=== PATIENT | male | born 1970 | race Caucasian/White ===

== ENCOUNTER 2024-03-27 11:18 | Inpatient (IN) | payer MEDICAID ==
[~2024-03-27] VITALS: Ht 170.2 cm; Wt 39.9 kg
[2024-03-27 11:42] LABS: DIFFERENTIAL COMMENT 1; HEMATOCRIT. 28.8 % (42.0-52.0); HEMOGLOBIN. 9.1 g/dL (14.0-18.0); MEAN CORPUSCULAR HEMOGLOBIN 25.1 pg (28.0-32.0); MEAN CORPUSCULAR HGB CONC 31.6 g/dL (31.0-37.0); MEAN CORPUSCULAR VOLUME 79.4 fL (80.0-94.0); MEAN PLATELET VOLUME 7.9 fl (7.4-10.4); PLATELET 338 x1000/uL (130-400); RED BLOOD CELL COUNT 3.63 mill/uL (4.7-6.1); RED CELL DISTRIBUTION WIDTH 19.7 % (11.6-14.6); WHITE BLOOD COUNT 14.1 x1000/uL (4.5-11.0)
[2024-03-27 11:48] LABS: CHLORIDE 108 mEq/L (98-107); POTASSIUM 3.9 mEq/L (3.5-5.1); SODIUM 139 mEq/L (136-145)
[2024-03-27 11:49] LABS: CALCIUM 8.3 mg/dL (8.7-10.4); CARBON DIOXIDE 21 mEq/L (21-32)
[2024-03-27 11:54] LABS: CREATININE 0.6 mg/dL (0.6-1.3); GLUCOSE 251 mg/dL (70-105); UREA NITROGEN BLOOD 21 mg/dL (9-23)
[2024-03-27 11:55] LABS: TROPONIN I HIGH SENSITIVITY 9 ng/L (3.0-53)
[2024-03-27 12:02] LABS: LACTIC ACID 5.3 mmol/L (0.4-2.0)
[2024-03-27 12:26] LABS: PROTHROMBIN TIME 11.4 sec (9.6-11.0)
[2024-03-27 12:27] LABS: ANISOCYTOSIS 2+; MICROCYTOSIS 1+; PLATELET ESTIMATE NORMAL
[2024-03-27] MEDS: VANCOMYCIN 1G PREMIX 200 ML IV ONE (13:09)
[2024-03-27] MEDS: PIPERACILLIN/TAZO 3.375G/50ML 50 ML IV ONE (13:09)
[2024-03-27] MEDS: SODIUM CHLORIDE 0.9% 1000ML BAG (SEPSIS BOLUS) IV ONE (13:09)
[2024-03-27] MEDS ORDERED: ACETAMINOPHEN 325MG TABLET PO PRN (15:00)
[2024-03-27] MEDS ORDERED: KETOROLAC 15MG/ML VIAL IV PRN (15:00)
[2024-03-27] MEDS ORDERED: MAGNESIUM/ALUMINUM HYDROXIDE/SIMETHICONE 30ML UDC PO PRN (15:00)
[2024-03-27] MEDS ORDERED: GUAIFENESIN 200MG/10ML SUGAR FREE UDC PO PRN (15:00)
[2024-03-27] MEDS ORDERED: IPRATROPIUM/ALBUTEROL 0.5-3(2.5)MG/3ML NEB NEB PRN (15:00)
[2024-03-27] MEDS ORDERED: ONDANSETRON HCL 4MG/2ML INJ IV PRN (15:00)
[2024-03-27] MEDS ORDERED: DOCUSATE SODIUM 100MG CAPSULE PO PRN (15:00)
[2024-03-27] MEDS ORDERED: NITROGLYCERIN 0.4MG TABLET SL SL PRN (15:00)
[2024-03-27] MEDS: AMLODIPINE 5MG TABLET PO NR (15:30)
[2024-03-27] MEDS: ZINC SULFATE 220 MG ( 50 ) CAPSULE PO SCH (15:30)
[2024-03-27] MEDS: MEROPENEM 1,000 MG in SODIUM CHLORIDE 0.9% 100 ML IV SCH (16:33)
[2024-03-27] MEDS: NITROGLYCERIN OINT 1GM/INCH UDPKT TD SCH (16:42)
[2024-03-27] MEDS: ACETAMINOPHEN 325MG TABLET PO PRN (16:51)
[2024-03-27] MEDS: ENOXAPARIN 40MG/0.4ML SYR SUBCUT SCH (16:54)
[2024-03-27] MEDS: BLOOD SUGAR DIAGNOSTIC STRIP TEST SCH (17:00)
[2024-03-27 17:37] LABS: IRON 40 ug/dL (65-175); TRIGLYCERIDE 103 mg/dL (0-150)
[2024-03-27 17:38] LABS: LDL CHOLESTEROL 65 mg/dL (5-100)
[2024-03-27 17:39] LABS: CHOLESTEROL 123 mg/dL (<200); HDL CHOLESTEROL 44 mg/dL (>55)
[2024-03-27 17:40] LABS: TOTAL IRON BINDING CAPACITY 344 ug/dl (250-425)
[2024-03-27 17:41] LABS: FOLIC ACID (FOLATE) SERUM 12.31 ng/mL (>5.38)
[2024-03-27 17:42] LABS: T4 FREE 1.08 ng/dL (0.89-1.76); VITAMIN B12 SERUM 678 pg/mL (211-911)
[2024-03-27 17:49] LABS: CLARITY URINE CLEAR (CLEAR); COLOR URINE YELLOW (YELLOW); GLUCOSE URINE NEGATIVE (NEGATIVE); KETONES URINE NEGATIVE (NEGATIVE); LEUKOCYTE ESTERASE URINE NEGATIVE (NEGATIVE); NITRITE URINE NEGATIVE (NEGATIVE); OCCULT BLOOD URINE NEGATIVE (NEGATIVE); PROTEIN URINE NEGATIVE (NEGATIVE); SPECIFIC GRAVITY URINE 1.015 (1.005-1.030); UROBILINOGEN URINE 0.2 E.U./dL (0.2-1.0)
[2024-03-27 18:02] LABS: *AMPHETAMINES SCREEN URINE NEGATIVE (NEGATIVE); *BARBITURATES SCREEN URINE NEGATIVE (NEGATIVE); *BENZODIAZEPINES SCREEN URINE NEGATIVE (NEGATIVE); *COCAINE SCREEN URINE NEGATIVE (NEGATIVE); CANNABINOID URINE SCREEN NEGATIVE (NEGATIVE); ECSTASY MDMA SCREEN URINE NEGATIVE (NEGATIVE); METHADONE URINE SCREEN NEGATIVE (NEGATIVE); OPIATES URINE SCREEN NEGATIVE (NEGATIVE); PHENCYCLIDINE URINE SCREEN NEGATIVE (NEGATIVE)
[2024-03-27] MEDS: INSULIN LISPRO 100 UNITS/ML SUBCUT SCH (18:09)
[2024-03-27 19:00] VITALS: BP 130/71; PULSE 102; RESP 18; TEMP 97.8
[2024-03-27 20:00] VITALS: BP 111/69; RESP 20; TEMP 97.9; O2SAT 95
[2024-03-27] MEDS ORDERED: ZOLPIDEM TARTRATE 5MG TABLET PO PRN (21:00)
[2024-03-27] MEDS: ASCORBIC ACID 500 MG TABLET PO SCH (21:00)
[2024-03-27] MEDS: FAMOTIDINE 20MG TABLET PO SCH (21:00)
[2024-03-27] MEDS: INSULIN GLARGINE 100 UNITS/ML SUBCUT SCH (22:17)
[2024-03-27] MEDS: LEVETIRACETAM 500MG PREMIX 100 ML IV SCH (22:54)
[2024-03-27] MEDS: VANCOMYCIN 750MG/150ML (BAXTER) IV SCH (23:43)
[2024-03-28] VITALS: BP_SYST 111; BP_SYST 124; BP_DIAS 69; BP_DIAS 71; PULSE 87; PULSE 94; RESP 18; RESP 20; TEMP 97.9; O2SAT 96
[2024-03-28 03:33] LABS: CREATINE KINASE MB FRACTION 0.6 ng/mL (0.5-3.6)
[2024-03-28 03:34] LABS: CREATINE KINASE 75 IU/L (46-171)
[2024-03-28 03:38] LABS: TROPONIN I HIGH SENSITIVITY < 4 ng/L (3.0-53)
[2024-03-28 04:00] VITALS: BP 109/70; RESP 19; TEMP 97.7; O2SAT 98
[2024-03-28 08:00] VITALS: BP 118/72; RESP 18; TEMP 98.2
[2024-03-28 08:03] LABS: CHLORIDE 108 mEq/L (98-107); SODIUM 139 mEq/L (136-145)
[2024-03-28 08:04] LABS: CALCIUM 9.2 mg/dL (8.7-10.4); CARBON DIOXIDE 26 mEq/L (21-32)
[2024-03-28 08:07] LABS: BASOPHILS % 0.8 % (0.0-2.0); DIFFERENTIAL COMMENT 0; HEMATOCRIT. 25.2 % (42.0-52.0); HEMOGLOBIN. 8.1 g/dL (14.0-18.0); LYMPHOCYTES % 25.2 % (20.0-50.0); MEAN CORPUSCULAR HGB CONC 32.1 g/dL (31.0-37.0); MEAN CORPUSCULAR VOLUME 77.9 fL (80.0-94.0); MEAN PLATELET VOLUME 8.2 fl (7.4-10.4); MONOCYTES % 3.6 % (2.0-8.0); NEUTROPHILS % 69.4 % (40.0-76.0); PLATELET 275 x1000/uL (130-400); RED BLOOD CELL COUNT 3.24 mill/uL (4.7-6.1); RED CELL DISTRIBUTION WIDTH 19.4 % (11.6-14.6); WHITE BLOOD COUNT 7.8 x1000/uL (4.5-11.0)
[2024-03-28 08:08] LABS: CREATINE KINASE MB FRACTION 0.8 ng/mL (0.5-3.6); TROPONIN I HIGH SENSITIVITY 7 ng/L (3.0-53)
[2024-03-28 08:09] LABS: GLUCOSE 98 mg/dL (70-105)
[2024-03-28 08:10] LABS: UREA NITROGEN BLOOD 9 mg/dL (9-23)
[2024-03-28 08:11] LABS: ALANINE AMINOTRANSFERASE 11 IU/L (10-49); ALBUMIN 3.9 g/dL (3.2-4.8); ASPARTATE AMINOTRANSFERASE 12 IU/L (<34); CREATINE KINASE 64 IU/L (46-171); PHOSPHORUS 2.3 mg/dL (2.5-4.9)
[2024-03-28 08:12] LABS: BILIRUBIN TOTAL 0.6 mg/dL (0.1-1.0); PROTEIN TOTAL 5.9 g/dL (6.0-8.3)
[2024-03-28 08:23] LABS: CREATININE 0.4 mg/dL (0.6-1.3)
[2024-03-28] MEDS: CLOPIDOGREL 75MG TABLET PO SCH (09:00)
[2024-03-28] MEDS: AMLODIPINE 10MG TABLET PO SCH (09:00)
[2024-03-28] MEDS: POTASSIUM CHLORIDE 20MEQ TABLET SR PO NR (09:00)
[2024-03-28] MEDS: MEROPENEM 1,000 MG in SODIUM CHLORIDE 0.9% 100 ML IV SCH (10:00)
[2024-03-28] MEDS: POTASSIUM PHOSPHATE 30 MMOL in SODIUM CHLORIDE 0.9% 490 ML IV NR (11:00)
[2024-03-28] MEDS: MAGNESIUM 1 G PREMIX 100 ML IV NR (11:14)
[2024-03-28] MEDS: LEVETIRACETAM 500MG PREMIX 100 ML IV SCH (11:17)
[2024-03-28 16:00] VITALS: BP 124/71; RESP 20; TEMP 98.4; O2SAT 95
[2024-03-29 08:00] VITALS: BP 132/83; RESP 18; TEMP 98.6; O2SAT 98
[2024-03-29 12:00] VITALS: BP 143/82; RESP 18; TEMP 98.3; O2SAT 9
[2024-03-29] MEDS: VANCOMYCIN 1G PREMIX 200 ML IV SCH (17:14)
[2024-03-30 08:00] VITALS: BP 123/75; RESP 18; TEMP 97.8; O2SAT 98
[2024-03-30 12:00] VITALS: BP 125/68; RESP 18; TEMP 97.7; O2SAT 96
[2024-03-30 16:00] VITALS: BP 125/72; RESP 18; TEMP 98.1; O2SAT 100
[2024-03-31] MEDS: CLONIDINE 0.1MG TABLET PO PRN (01:54)
[2024-03-31 05:27] LABS: BASOPHILS % 0.6 % (0.0-2.0); DIFFERENTIAL COMMENT 0; EOSINOPHILS % 0.4 % (0.0-5.0); HEMATOCRIT. 28.3 % (42.0-52.0); HEMOGLOBIN. 9.2 g/dL (14.0-18.0); LYMPHOCYTES % 10.7 % (20.0-50.0); MEAN CORPUSCULAR HEMOGLOBIN 25.5 pg (28.0-32.0); MEAN CORPUSCULAR HGB CONC 32.5 g/dL (31.0-37.0); MEAN CORPUSCULAR VOLUME 78.5 fL (80.0-94.0); MEAN PLATELET VOLUME 7.9 fl (7.4-10.4); MONOCYTES % 4.9 % (2.0-8.0); NEUTROPHILS % 83.4 % (40.0-76.0); PLATELET 348 x1000/uL (130-400); RED BLOOD CELL COUNT 3.61 mill/uL (4.7-6.1); RED CELL DISTRIBUTION WIDTH 19.2 % (11.6-14.6); WHITE BLOOD COUNT 5.8 x1000/uL (4.5-11.0)
[2024-03-31 05:56] LABS: CALCIUM 9.1 mg/dL (8.7-10.4); CHLORIDE 99 mEq/L (98-107); POTASSIUM 3.6 mEq/L (3.5-5.1); SODIUM 138 mEq/L (136-145)
[2024-03-31 05:57] LABS: CARBON DIOXIDE 27 mEq/L (21-32)
[2024-03-31 06:01] LABS: VANCOMYCIN TROUGH 14.1 ug/mL (5.0-10.0)
[2024-03-31 06:02] LABS: CREATININE 0.6 mg/dL (0.6-1.3)
[2024-03-31 06:03] LABS: GLUCOSE 169 mg/dL (70-105); UREA NITROGEN BLOOD 12 mg/dL (9-23)
[2024-03-31 08:00] VITALS: BP 115/75; PULSE 92; RESP 20; TEMP 100
[2024-03-31 12:00] VITALS: BP 100/62; PULSE 87; RESP 20; TEMP 98.6
[2024-03-31] MEDS: DEXTROSE 50% WATER 50ML SYRINGE IV PRN (17:11)
[2024-03-31 23:56] VITALS: BP 102/59; PULSE 72; RESP 18; TEMP 97.8
[2024-04-01 13:21] VITALS: BP 112/72; PULSE 73; TEMP 98; O2SAT 93
== END 2024-04-01 18:09 | DRG 720 ==
LOC: ER 11:50 → 8WST 12:27 → EDBEDREQ 12:29 → EDBEDREQTM 12:29
PROVIDERS: ADMIT Internal Medicine; ATTEND Internal Medicine
DX: A41.9 Sepsis, unspecified organism (principal); G92.8 Other toxic encephalopathy; L89.153 Pressure ulcer of sacral region, stage 3; J18.9 Pneumonia, unspecified organism; D63.8 Anemia in other chronic diseases classified elsewhere; E83.51 Hypocalcemia; R56.9 Unspecified convulsions; E11.9 Type 2 diabetes mellitus without complications; I10 Essential (primary) hypertension; R65.20 Severe sepsis without septic shock; S30.0XXA Contusion of lower back and pelvis, initial encounter; X58.XXXA Exposure to other specified factors, initial encounter; Y95 Nosocomial condition; Z86.73 Personal history of transient ischemic attack (TIA), and cerebral infarction without residual deficits; Z79.899 Other long term (current) drug therapy; Y93.89 Activity, other specified; Y92.89 Other specified places as the place of occurrence of the external cause; Y99.8 Other external cause status
CPT/HCPCS: 36415; 71045; 80048; 80053; 80061; 80202; 80305; 81003; 82550; 82553; 82607; 82746; 82962; 83036; 83540; 83550; 83605; 83735; 84100; 84145; 84439; 84443; 84484; 85025; 93005; 93306; 93970; 99291; J1650; J1815; J1953; J2185; J2543; J3370; J3475; J3490; J7030; J7040; J7050